=== PATIENT | male | born 1940 | race Caucasian/White ===

== ENCOUNTER 2018-07-29 00:49 | Observation (INO) ==
[2018-07-29] MEDS ORDERED: OXYCODONE Oral CONC 10 MG/0.5 ML ORAL.SYG SL PRN (04:31)
[2018-07-29] MEDS ORDERED: Naloxone 0.4 MG/ML INJ IVP PRN (04:31)
[2018-07-29 07:19] LABS: Basophils # 0.1 K/mcL (0.0-0.2); Basophils % 0.8 %; Eosinophils # 0.3 K/mcL (0.0-0.6); Eosinophils % 4.4 %; Hematocrit 42.8 % (37.5-50.1); Hemoglobin 14.3 g/dL (12.9-16.9); Immature Granulocytes % 0.6 % (0-4); Lymphocytes # 1.8 K/mcL (0.6-4.6); Lymphocytes % 23.4 %; Mean Corpuscular HGB Conc 33.4 g/dL (31.6-35.5); Mean Corpuscular Hemoglobin 31.2 pg (28.0-33.3); Mean Corpuscular Volume 93.2 fL (83.0-100.0); Mean Platelet Volume 9.3 fL (9.4-12.4); Monocytes # 0.8 K/mcL (0.0-1.3); Monocytes % 9.9 %; Neutrophils # 4.8 K/mcL (1.6-8.9); Platelet Count 250 K/mcL (140-400); Red Blood Count 4.59 M/mcL (4.19-5.50); Red Cell Distribution Width 12.4 % (11.5-14.5); Segmented Neutrophils % 60.9 %
[2018-07-29 07:45] LABS: BUN/Creatinine Ratio 15 (6-26); Blood Urea Nitrogen 15 mg/dL (8-23); Carbon Dioxide 29 mEq/L (23-29); Chloride 106 mEq/L (98-107); Glucose 90 mg/dL (70-105); Osmolality,Calculated 288 (280-300); Sodium 139 mEq/L (136-145); eGFR For Non-African Americans > 60 (> 60)
--- NOTE | 2018-07-29 08:25 | Internal Med History&Physical ---
Date of Encounter: 07/29/18 Time of Encounter: 04:00 Internal Medicine - H&P: HPI Chief complaint: Right greater trochanter fracture Admitted From: Hospital to Hospital Transfer Plans for Post Hospital Care: Home History of present illness: Mr. Wayne is a 77 year old male Patient states that he fell down outside while pulling weeds. He has fallen twice in the past week due to feeling dizzy. He says that he got dizzy while pulling the weeds, thus resulting in the fall. He landed on his buttocks, which resulted in pain. He has a history of left hip fracture a few years ago. He has had this dizziness off and on for a while, uses meclizine which as he says "works pretty fair" for him. He was taken to the ER at [place] for further evaluation. In the ER, CT abdomen and pelvis showed a non-displaced fracture of the right greater trochanter. CT head was negative. CBC and BMP were unremarkable. EKG was normal sinus rhythm. Orthopedic surgery was notified and agreed to consult on the patient after transfer to [place]. Upon my assessment patient denies nausea, vomiting, diarrhea, constipation, chest pain and abdominal pain. His dizziness is present, and he states that he did not take his medication today like he normally would. His and son are at bedside, and confirm the above story. His son states that he is medical power of immigration attorney, and confirms a history of dementia. Currently though patient seems AOx3. He confirms that he is FULL CODE. Past Med Surg Social Fam HX - Past Medical History Medical history: dementia, hypertension Psychiatric history: no psych history - Past Surgical History Additional surgical history: left hip replacement, back surgery - Social History Smoking Status: Former smoker Smokeless Tobacco Status: No Alcohol use: none Drug use: none - Family History Mother History Unknown: Yes Adopted: [place]: Alla Wayne Age: 80 Family Member Ethnicity: Non- Living Status: Age at : 80 Cause of : Natural causes Father History Unknown: Yes Internal Medicine - H&P: Meds 3 Allergy/AdvReac Type Severity Reaction Status Date / Time bee venom protein (honey bee) Allergy Hives Verified 07/29/18 05:00 All Systems PM: A 10-system review of systems was performed and is negative for pertinent findings except as documented above in the HPI. - Constitutional Vitals: Temp Pulse Resp BP Pulse Ox 98 F 64 16 138/76 96 07/29/18 06:35 07/29/18 06:35 07/29/18 06:35 07/29/18 06:35 07/29/18 06:35 General appearance: Present: cooperative, A&O X 3, pleasant, no acute distress, answers questions appropriately Exam: As above - Head Head exam: Present: normal inspection - Eye Eye exam: Present: EOMI, normal appearance - Neck Neck exam general surgery: Present: full ROM - Respiratory Respiratory exam: Present: CTAB. Absent: rales, wheezes - Cardiovascular Cardiovascular exam: Present: RRR. Absent: diastolic murmur, systolic murmur - GI/Abdominal GI/Abdominal exam: Present: normal bowel sounds, soft. Absent: tenderness - Extremities Exam Extremities exam: Present: tenderness, warm, radial pulses palpable and symmetrical. Absent: calf tenderness, pedal edema Additional comments: Patient has tenderness over the left hip, not right hip. He is able to walk and sit up with out much pain. - Neurological Exam Neurological exam: Present: no focal deficits, strengths equal and symetr throughout. Absent: motor sensory deficit, facial droop, speech deficit - Skin Skin exam: Present: dry, normal color, warm Internal Med - H&P Results - Labs CBC & Chem 7: 07/29/18 06:55 07/29/18 06:55 Labs: Short CBC 07/29/18 Range/Units 06:55 WBC 7.8 (4.3-11.1) K/mcL Hgb 14.3 (12.9-16.9) g/dL Hct 42.8 (37.5-50.1) % Plt Count 250 (140-400) K/mcL Neutrophils # 4.8 (1.6-8.9) K/mcL BMP 07/29/18 06:55 Sodium 139 Potassium 4.0 Chloride 106 Carbon Dioxide 29 BUN 15 Creatinine 0.99 Glucose 90 Calcium 9.0 - Assessment and plan (1) Fracture of greater trochanter of right femur Current Visit: Yes Status: Acute Assessment and plan: As evidenced by documentation from [place] ER. On exam patient has no tenderness over the right hip, but does have tenderness over left hip. Would need to confirm that the imaging was not accidentally reversed that would explain this discrepancy. Ortho consultation NPO after midnight Pain medication as needed, currently well controlled. Qualifiers: Encounter type: initial encounter Fracture type: closed Fracture alignment: nondisplaced Qualified Code(s): S72.114A - Nondisplaced fracture of greater trochanter of right femur, initial encounter for closed fracture (2) Left hip pain Current Visit: Yes Status: Acute Assessment and plan: As above, could be secondary to fall, but would need to confirm that patient doesn't actually have a left hip injury instead of right. Has a history of left hip fracture status post repair. No records available in our system from previous fracture event. Confirm with radiology once images uploaded to system. (3) Dementia Current Visit: Yes Status: Acute Assessment and plan: History of dementia as per patient's son. Medication list unavailable at this time as [facility] is closed. Will get medication list at 9am and confirm if he is taking any meds for dementia. Currently patient is well oriented x3. Qualifiers: Qualified Code(s): F03.90 - Unspecified dementia without behavioral disturbance (4) Dizziness Current Visit: Yes Status: Acute Assessment and plan: Patient takes meclizine as per son. Continue when taking PO (5) DVT prophylaxis Current Visit: Yes Status: Acute Assessment and plan: SCDs - Time Spent With Patient Total time spent is greater than 50% in coordination of care (as documented) at patient's floor/unit and/or counseling patient: Greater than 35 minutes
[2018-07-29] MEDS ORDERED: *HR* HYDROcodone/Acet 10/325 mg TABLET PO PRN (11:27)
[2018-07-29] MEDS ORDERED: *HR* HYDROcodone/Acet 5/325 mg TABLET PO PRN (11:31)
--- NOTE | 2018-07-29 11:36 | Event Note ---
Date of Encounter: 07/29/18 Time of Encounter: 09:45 Patient with history of hypertension, hyperlipidemia, and vertigo was transferred from outside hospital after a fall resulting in right non-displaced greater trochanteric fracture. Currently remaining on nothing by mouth and bed rest until orthopedic evaluation. Resume home meds once reconciled for HTN. No history of CAD, CHF, CVA, insulin dep DM, or CKD. No signs and symptoms suggestive of ACS, malignant arrhythmia, or decompensated heart failure. RCRI 0 , low risk patient for intermediate risk op.
[2018-07-29] MEDS: *HR* Heparin 5,000 UNIT/ML VIAL SQ SCH (17:28)
--- NOTE | 2018-07-29 20:30 | Orthopedic Consult Note ---
Date of Encounter: 07/29/18 Time of Encounter: 20:21 History of Present Illness Chief complaint: Lateral hip pain HPI: Mr. Wayne is a 77 year old male who sustained a mechanical fall today. He had onset of bilateral hip pain. He was seen at [facility] where CT scan was performed. This revealed evidence of a right hip fracture. He was transferred to [facility] for definitive orthopedic management. The patient does have a history of a previous left hip fracture was treated with placement of an intramedullary nail. Patient also has a history of having had a endovascular procedure performed on his abdominal aorta. Patient denies any referred pain down the leg. He is not having groin pain. I reviewed the patient's completed history and physical exam as well as data on the completed medical record. I also reviewed studies from [facility]. Distal examination is a pleasant 77-year-old gentleman in no acute distress while lying in the hospital bed. No evidence of leg length discrepancy nor rotational deformities. He does have some pain on palpation of the lateral aspect of the right hip. I reviewed a CT scan of the pelvis. This is from [facility] and these are acute toward soft tissue windows. There is evidence of an acute nondisplaced greater trochanteric fracture on the right side. Left side reveals presence of an intramedullary nail with a screw extending into the femoral neck. The lumbar spine is visualized in a limited manner. Evidence of significant lumbar spondylosis is noted. Of note also is marked calcifications within the iliac vessels. There is also evidence of a large abdominal aortic aneurysm. This shows evidence of previous aortobifemoral graft that appears to be within the confines of the aneurysm. The lumbar CT reveals multilevel lumbar degenerative disc disease with evidence of previous laminectomy at the L5 level. There is evidence of a persistent though reportedly unchanged 10 cm abdominal aortic aneurysm with an aortobifemoral graft. Impression: Nondisplaced greater trochanter fracture right proximal femur Recommendation: The right proximal femur fracture does not require surgical intervention. This can be treated very conservatively with use of a walker and weightbearing as tolerated. Pain management is indicated. Caution must be maintained to avoid constipation or obstipation. DVT prophylaxis also recommended. Consider speaking with the vascular surgeon in regards to his abdominal aortic aneurysm with the aortobifemoral graft. There appears to be significant kinking of the graft at the level of the bifurcation. Thank you allowing me to seen care for Mr. Wayne. Sincerely, Ethan Aguiar,DO Past Med Surg Social Fam HX - Past Medical History Medical history: dementia, hypertension Psychiatric history: no psych history - Past Surgical History Additional surgical history: left hip replacement, back surgery - Social History Smoking Status: Former smoker Smokeless Tobacco Status: No Alcohol use: none Drug use: none - Family History Mother History Unknown: Yes Adopted: [place]: Alla Wayne Age: 80 Family Member Ethnicity: Non- Living Status: Age at : 80 Cause of : Natural causes Father History Unknown: Yes Medications and Allergies Atorvastatin [Lipitor] 10 mg PO DAILY 07/29/18 [History] Cholecalciferol (Vitamin D3) [Vitamin D] 1,000 unit PO DAILY 07/29/18 [History] Finasteride [Proscar] 5 mg PO DAILY 07/29/18 [History] Meclizine [Antivert] 25 mg PO TID PRN 07/29/18 [History] Tamsulosin [Flomax] 0.4 mg PO DAILY 07/29/18 [History] amLODIPine [Norvasc] 5 mg PO DAILY 07/29/18 [History] 3 Allergy/AdvReac Type Severity Reaction Status Date / Time bee venom protein (honey bee) Allergy Hives Verified 07/29/18 05:00 All Systems Reviewed: The remainder of the systems were reviewed and are negative Physical Exam - Constitutional Vitals: Temp Pulse Resp BP Pulse Ox 98.4 F 66 16 137/79 91 07/29/18 20:00 07/29/18 20:00 07/29/18 20:00 07/29/18 20:00 07/29/18 20:00 Results - Labs Result Diagrams: 07/29/18 06:55 07/29/18 06:55 Labs: Abnormal lab results MPV 9.3 fL (9.4-12.4) L 07/29/18 06:55 H & H 07/29/18 Range/Units 06:55 Hgb 14.3 (12.9-16.9) g/dL Hct 42.8 (37.5-50.1) % All other labs normal. - Diagnostic results Hip CT: image reviewed CT Scan - lumbar: image reviewed Consult Discharge Plan - Plan Referrals: NONE,PCP [Primary Care Provider] -
[2018-07-30] MEDS ORDERED: Haloperidol Lactate 5 MG/ML VIAL IM PRN (00:39)
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
[2018-07-30] MEDS: *HR* Heparin 5,000 UNIT/ML VIAL SQ SCH ×2 (06:00→16:32)
[2018-07-30] MEDS: amLODIPine 5 MG TABLET PO SCH ×2 (06:00→08:11)
[2018-07-30] MEDS: Finasteride 5 MG TABLET PO SCH (08:12)
[2018-07-30] MEDS: Cholecalciferol (D-3) 1,000 UNIT TABLET PO SCH (08:12)
[2018-07-30] MEDS ORDERED: amLODIPine 5 MG TABLET PO SCH (09:00)
--- NOTE | 2018-07-30 14:03 | Internal Med Progress Note ---
Hospitalist Progress Note - Encounter Date of Encounter: 07/30/18 Time of Encounter: 11:15 - Subjective Interval History: Overnight event noted. Appears that patient was agitated overnight with combative behavior toward the staff members. Patient has history of dementia. Complains of mild right hip discomfort but not as severe as yesterday. - Exam Vitals: Temp Pulse Resp BP Pulse Ox 98.0 F 74 16 148/94 92 07/30/18 11:55 07/30/18 11:55 07/30/18 11:55 07/30/18 11:55 07/30/18 11:55 Exam: General: Alert, oriented to self, not in acute distress. Cardiovascular:Normal S1 & S2, No JVD. Pulse regular. Lungs: clear to auscultation, no wheezes/rales Abdomen:Soft, non-tender, no rigidity. Extremities:No obvious discrepancy in leg length, mild tenderness along the lateral aspect of R hip. Neurovascularly intact distally Pulses: both DP and PT palpable on both lower extremities - Assessment and Plan (1) Fracture of greater trochanter of right femur Current Visit: Yes Status: Acute Assessment and Plan: Following a mechanical fall. Orthopedic evaluation appreciated. Conservative mx with use of a walker and weightbearing as tolerated. pain mx start PT/OT, work with CM for placement. (2) History of aortic aneurysm repair Current Visit: Yes Status: Acute Assessment and Plan: reported history of abdominal aortic aneurysm repair with aortobifem graft about 5 years ago at [facility] asymptomatic, strong pulses in both lower extremities follow up outpatient (3) Dementia Current Visit: Yes Status: Chronic Assessment and Plan: Appears to have sundowning at night Frequent reorientation PRN Seroquel (4) Hypertension Current Visit: Yes Status: Acute Assessment and Plan: Resume home meds (5) DVT prophylaxis Current Visit: Yes Status: Acute Assessment and Plan: SubQ heparin - Time Spent with Patient Total time spent is greater than 50% in coordination of care (as documented) at patient's floor/unit and/or counseling patient: Plan of Care Discussed with: patient Internal Medicine: Result - Labs CBC & Chem 7: 07/29/18 06:55 07/29/18 06:55 Consult Discharge Plan - Plan Referrals: NONE,PCP [Primary Care Provider] - (1) Fracture of greater trochanter of right femur Qualifiers: Encounter type: initial encounter Fracture type: closed Fracture alignment: nondisplaced Qualified Code(s): S72.114A - Nondisplaced fracture of greater trochanter of right femur, initial encounter for closed fracture (3) Dementia Qualifiers: Dementia type: unspecified type (4) Hypertension Qualifiers: Hypertension type: essential hypertension Qualified Code(s): I10 - Essential (primary) hypertension
[2018-07-31] MEDS: *HR* Heparin 5,000 UNIT/ML VIAL SQ SCH (06:29)
[2018-07-31] MEDS: amLODIPine 5 MG TABLET PO SCH (08:26)
[2018-07-31] MEDS: Cholecalciferol (D-3) 1,000 UNIT TABLET PO SCH (08:26)
[2018-07-31] MEDS: Finasteride 5 MG TABLET PO SCH (08:27)
[2018-07-31] MEDS ORDERED: Azithromycin 500 MG in D5% in Water 250 ML IVPB SCH (09:00)
[2018-07-31] MEDS ORDERED: predniSONE 20 MG TABLET PO SCH (09:00)
[2018-07-31] MEDS: Ipratropium/Albuterol Neb 3 ML IH SCH ×2 (11:25→11:59)
[2018-07-31 11:49] VITALS: BP 138/81
[2018-07-31] MEDS ORDERED: Azithromycin 250 MG TABLET PO SCH (12:30)
--- NOTE | 2018-07-31 12:32 | Discharge Summary ---
- NOTES TO OUTPATIENT PROVIDER Notes to Outpatient Provider: Patient was admitted for right greater trochanteric fracture and mild COPD exacerbation. Orthopedic surgery evaluated the patient and deemed that nonsurgical management is appropriate for patient. He was also started on oral azithromycin, prednisone, and bronchodilators for COPD exacerbation. He will be discharged to [facility] for further therapy and continuation of treatment for COPD. Of note, there was a concern on whether his aortobifemoral graft was kinked on CT imaging. Patient however had no symptoms of limb ischemia and had very strong pulses in dorsalis PEs and posterior tibial bilaterally. He was also just evaluated by vascular surgery at [facility] a month ago and was told that everything was good. Communicated to the patient and patient's family to look ou for the symptoms of limb ischemia and directed to be seen by [facility] vascular surgery as an outpatient. Date of Encounter: 07/31/18 Time of Encounter: 12:00 - Discharge Diagnosis (1) Fracture of greater trochanter of right femur Priority: Primary Status: Acute Qualifiers: Encounter type: initial encounter Fracture type: closed Fracture alignment: nondisplaced Qualified Code(s): S72.114A - Nondisplaced fracture of greater trochanter of right femur, initial encounter for closed fracture (2) History of aortic aneurysm repair Priority: Secondary Status: Acute (3) Dementia Priority: Secondary Status: Chronic Qualifiers: Dementia type: unspecified type Dementia behavioral disturbance: without behavioral disturbance Qualified Code(s): F03.90 - Unspecified dementia without behavioral disturbance (4) Hypertension Priority: Secondary Status: Acute Qualifiers: Hypertension type: essential hypertension Qualified Code(s): I10 - Essential (primary) hypertension (5) DVT prophylaxis Priority: Secondary Status: Acute (6) COPD exacerbation Priority: Secondary Status: Acute Hospital course: Mr. Wayne is a 77 year old male with PMHx of COPD and AAA repair was admitted for right greater trochanteric fracture and mild COPD exacerbation. Orthopedic surgery evaluated the patient and deemed that nonsurgical management is appropriate for patient. He was also started on oral azithromycin, prednisone, and bronchodilators for COPD exacerbation. He will be discharged to [facility] for further therapy and continuation of treatment for COPD. Of note , there was a concern on whether his aortobifemoral graft was kinked on CT imaging. Patient however had no symptoms of limb ischemia and had very strong pulses in dorsalis PEs and posterior tibial bilaterally. He was also just evaluated by vascular surgery at [facility] a month ago and was told that everything was good. Communicated to the patient and patient's family to look ou for the symptoms of limb ischemia and directed to be seen by [facility] vascular surgery as an outpatient. Discharge discussed with: patient, family, nurse, social work - Time Spent with Patient Total time spent providing and/or coordinating discharge services: Greater than 30 minutes - Discharge Medications Prescriptions: Ipratropium/Albuterol Neb [Duoneb] 3 ml IH [id number] PRN #20 inhsol PRN Reason: Shortness Of Breath/Wheezing HYDROcodone/Acet 5/325 mg [[place] 5-325 mg] 1 tab PO Q6HR PRN 4 Days #12 tablet PRN Reason: Pain Azithromycin [Zithromax] 500 mg PO DAILY #5 tablet predniSONE [PredniSONE] 40 mg PO DAILY 5 Days #10 tablet Home Medications: Atorvastatin [Lipitor] 10 mg PO DAILY 07/29/18 [History] Cholecalciferol (Vitamin D3) [Vitamin D3] 1,000 unit PO DAILY 07/29/18 [History] Finasteride [Proscar] 5 mg PO DAILY 07/29/18 [History] Meclizine [Antivert] 25 mg PO TID PRN 07/29/18 [History] Tamsulosin [Flomax] 0.4 mg PO DAILY 07/29/18 [History] amLODIPine [Norvasc] 5 mg PO DAILY 07/29/18 [History] Azithromycin [Zithromax] 500 mg PO DAILY #5 tablet 07/31/18 [Rx] HYDROcodone/Acet 5/325 mg [[place] 5-325 mg] 1 tab PO Q6HR PRN 4 Days #12 tablet 07/31/18 [Rx] Ipratropium/Albuterol Neb [Duoneb] 3 ml IH [id number] PRN #20 inhsol 07/31/18 [Rx] predniSONE [PredniSONE] 40 mg PO DAILY 5 Days #10 tablet 07/31/18 [Rx] Allergies/Adverse Reactions: 3 Allergy/AdvReac Type Severity Reaction Status Date / Time bee venom protein (honey bee) Allergy Hives Verified 07/29/18 05:00 Date of admission: 07/29/18 02:31 Primary care physician: PCP NONE Consults: 07/29/18 07:49 Consult to Orthopedic Surgery [CONS] Routine Consulting Provider: Orthopedic and Sports Medicine Reason for Consult: R greater trochanteric fracture Call Completed: Yes 07/30/18 07:34 Consult to Physical Therapy [CONS] Routine Comment: Evaluate, develop and implement POC Reason for Consult: R prox femur fracture, non-surgical. WBAT Does patient have active BEDREST order?: No Is patient medically & hemodynamically stable?: Yes - Constitutional Vitals: Temp Pulse Resp BP Pulse Ox 98.4 F 70 16 138/81 93 07/31/18 11:49 07/31/18 11:49 07/31/18 11:59 07/31/18 11:49 07/31/18 11:59 General appearance: Present: cooperative, A&O X 3, pleasant, no acute distress, answers questions appropriately Exam: General: Alert, oriented to self, not in acute distress. Cardiovascular:Normal S1 & S2, No JVD. Pulse regular. Lungs: clear to auscultation, no wheezes/rales Abdomen:Soft, non-tender, no rigidity. Extremities:No obvious discrepancy in leg length, mild tenderness along the lateral aspect of R hip. Neurovascularly intact distally Pulses: both DP and PT palpable on both lower extremities - Patient Status Disposition: Transfer SNF Condition: Fair Overall status at discharge: patient is progressing back to baseline - Discharge Instructions Instructions: Chronic Obstructive Pulmonary Disease (DC), Chronic Hypertension (DC) Follow Up With: NONE,PCP [Primary Care Provider] - - Diet and Activity Activity: as per physical therapy Diet: regular diet
--- NOTE | 2018-07-31 12:37 | Physician Discharge Referral ---
ExtendedCare Referral Info Institutional Level of Care: Skilled - Diagnosis (1) Fracture of greater trochanter of right femur Priority: Primary Status: Acute (2) History of aortic aneurysm repair Priority: Secondary Status: Acute (3) Dementia Priority: Secondary Status: Chronic (4) Hypertension Priority: Secondary Status: Acute (5) DVT prophylaxis Priority: Secondary Status: Acute (6) COPD exacerbation Priority: Secondary Status: Acute - Transfer Medications Prescriptions: Ipratropium/Albuterol Neb [Duoneb] 3 ml IH [id number] PRN #20 inhsol PRN Reason: Shortness Of Breath/Wheezing HYDROcodone/Acet 5/325 mg [[place] 5-325 mg] 1 tab PO Q6HR PRN 4 Days #12 tablet PRN Reason: Pain Azithromycin [Zithromax] 500 mg PO DAILY #5 tablet predniSONE [PredniSONE] 40 mg PO DAILY 5 Days #10 tablet Home Medications: Atorvastatin [Lipitor] 10 mg PO DAILY 07/29/18 [History] Cholecalciferol (Vitamin D3) [Vitamin D3] 1,000 unit PO DAILY 07/29/18 [History] Finasteride [Proscar] 5 mg PO DAILY 07/29/18 [History] Meclizine [Antivert] 25 mg PO TID PRN 07/29/18 [History] Tamsulosin [Flomax] 0.4 mg PO DAILY 07/29/18 [History] amLODIPine [Norvasc] 5 mg PO DAILY 07/29/18 [History] Azithromycin [Zithromax] 500 mg PO DAILY #5 tablet 07/31/18 [Rx] HYDROcodone/Acet 5/325 mg [[place] 5-325 mg] 1 tab PO Q6HR PRN 4 Days #12 tablet 07/31/18 [Rx] Ipratropium/Albuterol Neb [Duoneb] 3 ml IH [id number] PRN #20 inhsol 07/31/18 [Rx] predniSONE [PredniSONE] 40 mg PO DAILY 5 Days #10 tablet 07/31/18 [Rx] Allergies/Adverse Reactions: 3 Allergy/AdvReac Type Severity Reaction Status Date / Time bee venom protein (honey bee) Allergy Hives Verified 07/29/18 05:00 - Respiratory Orders Smoking Cessation: Smoking cessation has been advised. For more information, call the [place] Tobacco Quit Line at 4-763-ZPND-NOW. - Rehabiliation Orders Rehab Orders: Evaluation for Physical Therapy, Evaluation for Occupational Therapy - Treatments List/Other: Complete 5 day course of oral steroids and azithromycin. When necessary DuoNeb. CERTIFICATION: I certify that the transfer of the above named patient to an Extended Care Facility is necessary for the continuing treatment of the diagnosis listed. The above information is true and accurate reflection of patient's current condition. Confidential - Redisclosure prohibited without a patient's written consent.
== END 2018-07-31 14:00 ==
LOC: 3NENU → SUATTDRO 02:31
PROVIDERS: ADMIT Family Medicine; ATTEND Internal Medicine